=== PATIENT | female | born 1940 | race Caucasian/White ===

== ENCOUNTER 2016-10-18 01:45 | Inpatient (IN) | payer OTHER, MEDICARE ==
[~2016-10-18] VITALS: Ht 162.6 cm; Wt 99.8 kg
[2016-10-18] VITALS (7 sets, daily range): BP systolic 130–154; BP diastolic 70–80
[~2016-10-18 01:45] MED LIST: ASPIRIN EC81 M1 PO; COLACE100 M1 PO; COUMADIN2.5 M1 PO; CRESTOR10 M1 PO; DILAUDID2 M1 PO; JANUVIA100 M1 PO; MIRALAX17 G1 PO; OXYBUTYNIN CHLOR5 M3 PO; PRILOSEC OTC20 M1 PO; PROBIOTIC1 EACH PO; RANITIDINE HCL150 MG PO
--- NOTE | 2016-10-18 10:17 | Operative Report ---
Operative/Inv Procedure Report Surgery Date: 10/18/16 Name of Procedure: exp lap left salpingectomy Pre-Operative Diagnosis: pelvic mass Post-Operative Diagnosis: same frozen pelvis Estimated Blood Loss: 50ml to 100ml Surgeon/Section Repairer: HERBERT UGALDE,ISABEL Greenbergand dr velasco Anesthesia: general endotracheal tube, block Operative/Procedure Note Note: Procedure note patient was taken the operating room placed on position after adequate anesthesia patient was placed in dorsosupine position on her left knee had been positioned prior to on anesthesia the patient was awake. Dr. Daniel placed stents. He will dictate that part of the case. Patient was returned spine position the abdomen was prepped draped so fashion bladder was catheterized and stents were placed 2 fingerbreadths of symptoms pubis in midline skin was cut was carried down to rectus fascia using a Bovie was cut in curvilinear fashion either direction using a Bovie Pate O'Jay was placed into the abdomen at the peritoneal cavity was opened bluntly I at this point it was noted the patient has a frozen pelvis her on postmenopausal uterus is soft down against her pelvic bone her ovaries appear normal however she had a 6 cm on hydrosalpinx of the left tube I a Endoloop 2 was placed around the tube on that tube was cut and removed prior to being aspirated fluid was sent to pathology hemostasis was apparent the ovaries were small and atrophic I the patient would not benefit from a hysterectomy at this time on the fascia was once was removed from the abdomen a wrist was placed on the anterior part of the uterus on hemostasis was apparent Orrell since removed from the abdomen the peritoneum was reapproximated 0 the fascia was reapproximated to continue sutures #1 skin was reapproximated using marco at the end of the case the stents removed bilaterally tip intact the patient was extubated and transported recovery room awake alert counts correct
--- NOTE | 2016-10-18 11:33 | Cons- Medical ---
SJARABELLA 10/18/16 1132: General Information and HPI Consulting Request Date of Consult: 10/18/16 Requested By: HERBERT UGALDE,ISABEL Greenberg Reason for Consult: Diabetes management Source of Information: patient Exam Limitations: no limitations History of Present Illness: This is a 76 years old lady with past medical history significant for diabetes mellitus and hyperlipidemia who was admitted for exp lap left salpingectomy and today is day 0 post surgery. Trend has been diabetic for the past 2 years and is being controlled by her PCP. She was started on metformin initially but changed because of diarrhea to Januvia. She reports that her sugars are controlled at home and her fasting sugars are usually between her 110 and 170 however she does not take them regularly. On top of using medication she reports to exercise regularly and taking limited amount of carbohydrates. Patient denies any other chronic medical conditions or following up with any kind of durable medical equipment technician. Her only concern is mild discomfort on the surgical site but reports that the pain medication helping her tremendously. She is also complaining of dry mouth. Allergies/Medications Allergies: Coded Allergies: latex (Intermediate, RASH 10/15/16) Sulfa (Sulfonamide Antibiotics) (UNKNOWN 05/18/16) lactose (GI 05/18/16) metformin (Severe, DIARRHEA 10/11/16) Home Med List: Aspirin (Ecotrin*) 81 MG TABLET.DR 1 TAB PO DAILY PROPHO (Reported) Oxybutynin Chloride (Oxybutynin Chloride ER) 5 MG TAB.ER.24 1 TAB PO DAILY BLADDER (Reported) Polyethylene Glycol 3350 (Miralax) 17 GM POWD.PACK 1 PAC PO DAILY CONSTIPATION dissolve in water, DISCONTINUE USE IF YOU DEVELOP LOOSE STOOL OR DIARRHEA Ranitidine (Ranitidine HCl) 150 MG TABLET 1 TAB PO DAILY PRN GERD (Reported) Rosuvastatin Calcium (Crestor) 10 MG TABLET 1 TAB PO EOD CHOLESTEROL ( Reported) Sitagliptin Phosphate (Januvia) 100 MG TABLET 1 TAB PO DAILY BLOOD SUGAR ( Reported) Review of Systems Review of Systems Constitutional: Denies: chills, fever. EENTM: Denies: blurred vision, double vision. Cardiovascular: Denies: chest pain, palpitations. Respiratory: Denies: cough, short of breath. GI: Denies: no symptoms. All Other Systems: Reviewed and Negative Past History Medical History Neurological: NONE EENT: allergies Cardiovascular: NONE Respiratory: NONE Gastrointestinal: NONE Hepatic: NONE Renal: KIDNEY STONE Musculoskeletal: degen joint disease Psychiatric: NONE Endocrine: diabetes Blood Disorders: NONE Cancer(s): NONE DIE FITTER/Reproductive: NONE Surgical History Surgical History: knee replacement, 1 Family History Relations & Conditions If Any: MOTHER (Diabetes mellitus). FATHER (Coronary artery disease). Psychosocial History Services at Home: None Smoking Status: Unknown If Ever Smoked Functional Ability ADLs Independent: dressing, eating, toileting, bathing. Exam & Diagnostic Data Last 24 Hrs of Vital Signs/I&O Vital Signs Date Time Temp Pulse Resp B/P Pulse O2 O2 Flow FiO2 Ox Delivery Rate 10/18 1427 Nasal 3.0L Cannula 10/18 1210 96.2 78 18 138/76 94 Nasal 3.0L Cannula Intake & Output 10/18 1600 10/18 0800 10/18 0000 Intake Total 125 Output Total 200 Balance -75 Intake, IV 125 Intake, Oral 0 Output, Urine 200 Patient 220 lb Weight Physical Exam General Appearance: no apparent distress, alert, obese Head: atraumatic, normal appearance Ears, Nose, Throat: dry mucous membranes Neck: supple Respiratory: normal breath sounds, chest non-tender, no respiratory distress Cardiovascular: regular rate/rhythm Peripheral Pulses: 2+ radial (R), 2+ radial (L), 2+ dorsalis pedis (R), 2+ dorsalis pedis (L) Gastrointestinal: soft, non-tender, distant bowel sounds Extremities: normal inspection, normal capillary refill, no edema Last 24 Hrs of Labs/Adelfo: Hemoglobin 11.4 Diagnostic Data CXR Results Done October 15 shows platelike atelectasis on the lateral peripheral of the left lower lung Assessment/Plan Assessment/Plan This is a 76 years old lady day 0 post explorative laparotomy with left salpingectomy. Patient has history of diabetes mellitus which is well controlled under Januvia. Currently the patient is nothing by mouth on 5% dextrose Ringer lactate. Diabetes mellitus Patient will be put on Accu-Cheks every 6 hours Regular insulin sliding scale every 6 hours per nothing by mouth schedule We will hold Januvia and consider restarting upon discharge. When the patient started eating we will change to eating sliding scale. Hyperlipidemia Patient has history of hyperlipidemia and takes Crestor at home Will continue with anticholesterol medications and when the patient is taking nothing by mouth Will give low fat diet. Problem List: 1. Diabetes mellitus 2. Hyperlipidemia Copies To: HERBERT UGALDE,ISABEL Greenberg Consult Acknowledgment - Thank you for your consult request. MANUEL UGALDE,DWAYNE 10/18/16 9948: Assessment/Plan Consult Acknowledgment - Thank you for your consult request. Attending MD Review Statement Attending Statement Attending Statement: examined this patient, discuss w/resident/PA/SLAT BASKET TOP MAKER, agreed w/resident/PA/SLAT BASKET TOP MAKER, reviewed EMR data (avail), discussed with nursing, amended to note Attending Assessment/Plan: The patient is a 76 yo female with h/o DM2 & HL who was admitted to the head filter press tender service today after having exploratory laparoscopy and left salpingo- oophorectomy. Medical consultation called to assist in diabetes management. The patient is normally on Sitagliptin and states sugars are usually well controlled. Is currently NPO. Physical Exam: VS: T 96.2, P 78, R 18, BP 138/76, PO 94% on 3L HEENT: eyes- PERRLA, EOMI susie- dry mucosa Neck: no bruits or JVD Chest: diminished BS at bases, clear Cor: RRR, nl S1, S2 w/o murm Abd: BS-, distended, mild tender Ext: w/o edema, pulses 2+ Neuro: alert & oriented x 3, non-focal Labs/Tests- as above Impression/Plan: #S/P Exploratory Lap/L SO- seen post op today. Plan: Surgical care as per head filter press tender. ALPS/Incentive Spirometry #DM2- usually well controlled on oral agent. Plan: Will use sliding scale insulin/glucose monitoring as per protocol. #Hyperlipidemia- normally on Rosuvastatin. Plan: Will restart once taking po well. Will follow.
--- NOTE | 2016-10-18 12:00 | Operative Report ---
Operative/Inv Procedure Report Surgery Date: 10/18/16 Name of Procedure: cysto: bilateral stent insertion Pre-Operative Diagnosis: fibroids/pelvic mass-cyst Post-Operative Diagnosis: same Estimated Blood Loss: scant Surgeon/Senior Energy Market Coordinator: MD LINARES ARNOLD-UROLOGY Anesthesia: general endotracheal tube Drains: 18 FR SILVEIRA AND 2 STENTS TO BE DC'D PER DR. BARR Specimens: UCX Complications: none Operative/Procedure Note Note: The patient was taken to the operating room and placed on the OR table in supine position. Timeout was performed, with the patient awake, to confirm identify, planned procedures, anesthesia, antibiotics and other pertinent caroline-operative information. After adequate anesthesia, and IV antibiotics, the patient was placed in lithotomy Yellow-fin stirrups. She was then draped and prepped in the usual surgical fashion, including a vaginal prep. A 22 Vincentian cystoscope sheath with a 30 angle lens was inserted into the bladder without significant difficulty. The bladder was thoroughly and systematically examined, and was noted to be free of tumor, free of stone, free of endometriosis. Both ureteral orifices were in their orthotopic positions with clear reflux bilaterally. Under direct visualization the left orifice was intubated with a 5 Vincentian whistle-tip catheter, which was advanced easily into the left kidney pelvis. The right ureteral orifice was intubated with a second 5 Vincentian ureteral whistle tip catheter, and advanced into the right renal pelvis without difficulty. For identification purposes the blue marked stent went into the left kidney and the right ureteral stent was marked red. Urine culture was obtained and sent to pathology. The cystoscope was then removed leaving both stents in proper place. An 18 Vincentian Silveira catheter was inserted draining clear fluid and 10 mL of sterile water was then placed in the balloon. The ends ureteral stents, which protruded externally, were taped to the Silveira catheter in order to secure their position. The individual ureteral stents were then connected to their individual drainage devices. The patient tolerated the procedure well. All sponge needle and instrument count were correct at the end of this procedure. The patient was then placed in supine position with Venodyne's in place. At this point, Dr. Barr was able to proceed with her patient's surgery. Discharge Disposition: proceed with Dr. Barr CC: MARITZA LINARES MD
[2016-10-19] VITALS (7 sets, daily range): BP systolic 120–140; BP diastolic 62–81
--- NOTE | 2016-10-19 07:54 | PN- Medicine Consult ---
ARABELLA GUSTAFSON 10/19/16 0754: Assessment/Plan Assessment/Plan Assessment: This is a 76 years old lady day 0 post explorative laparotomy with left salpingectomy. Patient has history of diabetes mellitus which is well controlled under Januvia. Currently the patient is nothing by mouth on 5% dextrose Ringer lactate. Plan: Diabetes mellitus Patient will be put on Accu-Cheks every 6 hours Regular insulin sliding scale every 6 hours per nothing by mouth schedule Overnight finger stick sugar between 172 and 101 We will hold Januvia and consider restarting upon discharge. When the patient started eating we will change to eating sliding scale. Hyperlipidemia Patient has history of hyperlipidemia and takes Crestor at home Will continue with anticholesterol medications and when the patient is taking nothing by mouth Will give low fat diet. Problem List: 1. Diabetes mellitus 2. Hyperlipidemia Subjective Subjective: Reviewed the patient lying cough or clearing the bed she reports that her pain is well controlled. She is using the sponge to wet her mouth and denies any excessive dry mouth. Patient reports that her pain is controlled except when she moves around when she experiences more pain. Review of Systems Constitutional: Denies: chills, fever. Cardiovascular: Denies: no symptoms. Respiratory: Denies: no symptoms, cough, short of breath. Gastrointestinal: Denies: nausea, vomiting. Genitourinary: Denies: no symptoms. Comments: Other systems reviewed and are negative Objective Last 24 Hrs of Vital Signs/I&O Vital Signs Date Time Temp Pulse Resp B/P Pulse O2 O2 Flow FiO2 Ox Delivery Rate 10/19 1153 97.6 72 20 120/64 96 Nasal 3.0L Cannula 10/19 0812 97.7 70 20 130/81 96 Nasal 3.0L Cannula 10/19 0512 97.8 70 18 134/70 96 Nasal 3.0L Cannula 10/19 0338 97.8 73 18 140/76 96 Nasal 3.0L Cannula 10/19 0100 98.1 83 18 122/68 94 Nasal 3.0L Cannula 10/18 2300 97.5 91 20 130/80 10/18 2100 97.5 87 20 130/72 10/18 1900 97.4 90 20 130/70 10/18 1700 97.5 86 20 130/70 10/18 1609 97.4 81 20 154/74 94 10/18 1600 Nasal 3.0L Cannula 10/18 1451 98.2 78 18 138/76 10/18 1427 Nasal 3.0L Cannula Intake & Output 10/19 1600 10/19 0800 10/19 0000 Intake Total 1000 1000 1000 Output Total 350 1300 1400 Balance 650 -300 -400 Intake, IV 250 1000 1000 Intake, Oral 750 0 Output, Urine 350 1300 1400 Physical Exam General Appearance: no apparent distress, alert, awake Head: atraumatic Neck: supple Cardiovascular: regular rate/rhythm Respiratory: normal breath sounds Abdomen: soft, decreased bowel sounds Current Medications: Current Medications Sig/Deven Start time Last Medication Dose Route Stop Time Status Admin Atorvastatin Calcium 40 MG 1700 10/18 1700 AC PO Cefoxitin Sodium 2,000 MG ONCE 10/18 0000 DC IV 10/18 2359 Dextrose/Lactated 1,000 ML Q8H 10/18 1015 AC 10/19 Ringer's IV 0141 Diphenhydramine HCl 25 MG Q6P PRN 10/18 1015 AC IV Docusate Sodium 100 MG BID 10/18 2200 AC PO Hydromorphone HCl 50 MG Q24H PRN 10/18 1100 DC Sodium Chloride 45 ML IV Ibuprofen 800 MG Q6P PRN 10/19 1015 AC 10/19 PO 1149 Insulin Human Regular 0 Q6 10/18 1800 AC 10/19 SC 1218 Ketorolac 15 MG Q6P PRN 10/18 1045 AC Tromethamine IM 10/23 1044 Magnesium Hydroxide 30 ML AT BEDTIME NEED.. 10/19 1015 AC PO Ondansetron HCl 4 MG Q6P PRN 10/18 1015 AC 10/18 IV 1559 Oxycodone/ 1 TAB Q4P PRN 10/19 1015 AC Acetaminophen PO Patient Medication 1 ED .STK-MED ONE 10/19 1350 DC Teaching ED 10/19 1351 Sitagliptin Phosphate 100 MG DAILY 10/19 1203 AC PO Results Last 24 Hrs Lab/Adelfo Results: Laboratory Tests 10/19/16 0935: Anion Gap 10, Estimated GFR > 60, BUN/Creatinine Ratio 16.7 10/19/16 0831: CBC w Diff NO MAN DIFF REQ, RBC 4.89, MCV 65.1 L, MCH 20.6 L, RDW 16.2 H, MPV 8.9, Gran % 83.6 H, Lymphocytes % 10.3 L, Monocytes % 6.0, Eosinophils % 0, Basophils % 0.1, Absolute Granulocytes 12.7 H, Absolute Lymphocytes 1.6, Absolute Monocytes 0.9 H, Absolute Eosinophils 0, Absolute Basophils 0, PUBS MCHC 31.6 L 10/19/16 0605: Sodium Cancelled, Potassium Cancelled, Chloride Cancelled, Carbon Dioxide Cancelled, Anion Gap Cancelled, BUN Cancelled, Creatinine Cancelled, Estimated GFR Cancelled, BUN/Creatinine Ratio Cancelled DWAYNE JACKSON MD 10/19/16 1432: Attending MD Review Statement Attending Sign Off Attending Cosign Statement: I have: examined this patient, reviewed [facility] EMR data, agreed w/resident/PA/ELEVATOR INSPECTOR , amended to note. Other Findings: The patient was seen and discussed with house staff. Agree with plan of care as outlined.
[2016-10-19 10:00] LABS: ABSOLUTE BASOPHIL COUNT 0 /CUMM (0.0-0.2); ABSOLUTE EOSINOPHIL COUNT 0 /CUMM (0.0-0.7); ABSOLUTE GRANULOCYTE CT 12.7 /CUMM (1.4-6.5); ABSOLUTE LYMPH COUNT 1.6 /CUMM (1.2-3.4); ABSOLUTE MONOCYTE COUNT 0.9 /CUMM (0.10-0.60); BASOPHIL % 0.1 % (0.0-2.0); EOSINOPHIL % 0 % (0-5); HEMATOCRIT 31.9 % (37-47); MEAN CORPUSCULAR HGB 20.6 PG (27.0-31.0); MEAN CORPUSCULAR HGB CONC 31.6 G/DL (33.0-37.0); MEAN CORPUSCULAR VOLUME 65.1 FL (81.0-99.0); MEAN PLATELET VOLUME 8.9 FL (7.4-10.4); RBC DISTRIBUTION WIDTH 16.2 % (11.5-14.5); RED BLOOD CELL CT 4.89 /CUMM (4.20-5.40)
[2016-10-19 10:04] LABS: WHITE BLOOD CELL COUNT 15.2 /CUMM (4.8-10.8)
[2016-10-19 10:19] LABS: GRANULOCYTE % 83.6 % (42.2-75.2); PLATELET COUNT 186 /CUMM (130-400)
[2016-10-20 07:30] VITALS: BP 125/68
--- NOTE | 2016-10-20 12:29 | PN- General Surgery ---
Subjective Subjective: NO C/O Review of Systems: NEG Objective Vital Signs and I&Os Vital Signs Date Time Temp Pulse Resp B/P Pulse O2 O2 Flow FiO2 Ox Delivery Rate 10/20 0730 97.7 63 20 125/68 93 Room Air 10/19 2359 98.0 68 20 134/62 95 10/19 1644 97.1 68 20 132/64 95 Room Air Intake & Output 10/20 1600 10/20 0800 10/20 0000 10/19 1600 10/19 0800 10/19 0000 Intake Total 480 1000 1000 1000 Output Total 900 498 048 9547 1400 Balance -420 -700 550 -300 -400 Intake, IV 0 250 1000 1000 Intake, Oral 480 750 0 Output, Urine 900 242 108 9528 1400 Physical Exam: INCISION C/D/I EXT NT Assessment/Plan Assessment/Plan S/P LAPAROTOMY AND SALPINGECTOMY STABLE DISCHARGE HOME TODAY Core Measures/Miscellaneous Venous Thromboembolism VTE Risk Factors: Obesity, Surgery VTE Contraindications: No Contraindications VTE Prophylaxis Ordered Inpt Mechanical (ALPS/TEDS) VTE Diagnosis: No Beta Lety Is Beta Lety a Home Med? No Antibiotics Is Patient on Antibiotics? No
--- NOTE | 2016-10-20 12:32 | Surgical Discharge Summary ---
See Addendum Visit Information Visit Dates Admission Date: 10/18/16 Discharge Date: 10/21/16 History of Present Illness Chief Complaint: PELVIC PAIN Medical History Blood Transfusion Hx: No Neurological: dizziness, vertigo EENT: allergies Cardiovascular: NONE, hyperlipidemia Respiratory: NONE Gastrointestinal: ocassional gerd Hepatic: NONE Renal: KIDNEY STONE Musculoskeletal: degen joint disease Psychiatric: NONE Endocrine: diabetes Blood Disorders: NONE Cancer(s): NONE MANAGER OPERATIONS/Reproductive: yeast infections History of MRSA: No History of VRE: No History of CDIFF: No Isolation History: Standard Pneumonia Vaccine: 04/24/16 Influenza Vaccine: 04/24/16 Surgical History Pertinent Surgical History: none, knee replacement Family History Relations & Conditions If Any: MOTHER (Diabetes mellitus). FATHER (Coronary artery disease). Psychosocial History Where Do You Live? Home Who Do You Live With? Brother Services at Home: None What is Your Primary Language? Scottish Review of Systems: [facility] Hospital Course Course Attending Physician: ISABEL GODINEZ MD Primary Care Physician: ADRI UGALDE,[facility] Course: PT UNDERWENT LAPAROTOMY AND LEFT SALPINGECTOMY WITH CHETAN. SENT TO IN [facility]. PDOD1 PT WITHOUT C/O; DIET ADVANCED, ACTIVITY INCREASED; SILVEIRA D/C' D. POD2 PT TOLERATED REGULAR DIET, VOIDING; AMBULATING AND BM. DISCHARGED HOME. F/U 1 WEEK. Complications: NONE Allergies: Coded Allergies: latex (Intermediate, RASH 10/15/16) Sulfa (Sulfonamide Antibiotics) (UNKNOWN 05/18/16) lactose (GI 05/18/16) metformin (Severe, DIARRHEA 10/11/16) Disposition Summary Disposition Principal Diagnosis: PELVIC PAIN Additional Diagnosis: LEFT HYDROSALPINX Discharge Disposition: home or self care Discharge Instructions General Discharge Information Code Status: Full Code Patient's Diet: DIABETIC Patient's Activity: PELVIC REST; NO LIFTING Follow-Up Instructions/Appts: ONE WEEK Medications at Discharge Discharge Medications: Continue taking these medications: Oxybutynin Chloride (Oxybutynin Chloride ER) 5 MG TAB.ER.24 1 Tablet ORAL DAILY Comments: DOCUMENTED PER CMR DURING PRE-SX INTERVIEW Last Taken: 05/25/16 Time: 1000 Rosuvastatin Calcium (Crestor) 10 MG TABLET 1 Tablet ORAL Every other day Comments: DOCUMENTED PER CMR DURING PRE-SX INTERVIEW NOT GIVEN IN HOSPITAL Sitagliptin Phosphate (Januvia) 100 MG TABLET 1 Tablet ORAL DAILY Comments: DOCUMENTED PER CMR DURING PRE-SX INTERVIEW Last Taken: 05/25/16 Time: 1000 Polyethylene Glycol 3350 (Miralax) 17 GM POWD.PACK 1 Packet ORAL DAILY Days = 7 Instructions: dissolve in water, DISCONTINUE USE IF YOU DEVELOP LOOSE STOOL OR DIARRHEA Comments: Last Taken: 05/24/16 Time: 1245 Aspirin (Ecotrin*) 81 MG TABLET.DR 1 Tablet ORAL DAILY Ranitidine (Ranitidine HCl) 150 MG TABLET 1 Tablet ORAL DAILY as needed for GERD Start taking the following new medications: Ibuprofen (Ibuprofen) 800 MG TABLET 800 Milligram ORAL EVERY SIX HOURS NEEDED as needed for PAIN SCALE 1-3 ( MILD) Qty = 36 No Refills Docusate Sodium (Docusate Sodium) 100 MG CAPSULE 100 Milligram ORAL TWICE DAILY Qty = 60 No Refills
[2016-10-20] MEDS ORDERED: DOCUSATE SODIU100 M3 PO (12:34)
[2016-10-20] MEDS ORDERED: IBUPROFEN800 M1 PO (12:34)
--- NOTE | 2016-10-20 13:18 | PN- Att Addend ---
Attending Addendum Attending Brief Note 76 year Old female with past medical history significant for diabetes mellitus status post day 1 exploartory laparotomy for left salpingectomy is seen and examined on the bedside this morning. Patient has no active issues or complaints. Patient vitals are stable, Medical team was consulted for control of diabetes mellitus and hyperlipidemia. Patient was put on insulin sliding scale and was continued on her oral medications Januvia. patient was also continued on Crestor hyperlipidemia. Patient has been closely monitored by the primary team and since the patient is doing great, advanced her diet and activity, plan is to discharge the patient today with follow-up in one week with CELERY TIER. Patient should continue his home medications on discharge and should follow up with her primary care physician after discharge.
== END 2016-10-20 13:45 | DRG 743 ==
LOC: ENRESERVTM → ENRESERVDT → ENPENDDIS 01:45 → SDA 01:45 → 2NB 01:45
PROVIDERS: ADMIT Specialist
PROC: 0UT60ZZ Resection of Left Fallopian Tube, Open Approach (ICD-10-PCS; principal; 2016-10-18)
PROC: 0T788DZ Dilation of Bilateral Ureters with Intraluminal Device, Via Natural or Artificial Opening Endoscopic (ICD-10-PCS; 2016-10-18)
DX: N70.11 Chronic salpingitis (principal); E11.9 Type 2 diabetes mellitus without complications; E78.5 Hyperlipidemia, unspecified; Z79.84 Long term (current) use of oral hypoglycemic drugs
CPT/HCPCS: 2NBP; 36415; 81001; 82436; 87086; 88305; J0131; J0694; J1100; J1170; J1200; J1885; J2405